=== PATIENT | female | born 1960 ===

== ENCOUNTER 2018-11-25 06:33 | Day surgery (SDC) | payer OTHER | END 2018-11-25 11:40 | disposition home or self-care (01) | LOC: AMB-ENDOS 06:33 | DX: K57.32 Diverticulitis of large intestine without perforation or abscess without bleeding (principal); K64.1 Second degree hemorrhoids ==

== ENCOUNTER 2020-05-31 08:08 | Day surgery (SDC) | payer OTHER | END 2020-05-31 13:20 | disposition home or self-care (01) | LOC: AMB-ENDOS 08:08 | PROVIDERS: ATTEND Colon & Rectal Surgery | DX: K62.89 Other specified diseases of anus and rectum (principal); K57.32 Diverticulitis of large intestine without perforation or abscess without bleeding; K64.1 Second degree hemorrhoids; Z20.828 Contact with and (suspected) exposure to other viral communicable diseases ==